=== PATIENT | female | born 1975 | race Caucasian/White ===

== ENCOUNTER 2017-09-14 07:29 | Emergency (ER) | payer OTHER ==
[~2017-09-14] VITALS: Ht 160 cm; Wt 54.4 kg
[2017-09-14] MEDS ORDERED: ZYRTEC10 M3 PO (09:21)
[2017-09-14] MEDS ORDERED: CIPRO500 MG PO (09:21)
[2017-09-14] MEDS ORDERED: MEDROLPACK PO (09:21)
[2017-09-14] MEDS ORDERED: BENADRYL25 MG PO (09:21)
== END 2017-09-14 10:25 | disposition home or self-care (01) ==
LOC: ER 07:29
DX: L27.1 Localized skin eruption due to drugs and medicaments taken internally (principal); T49.0X5A Adverse effect of local antifungal, anti-infective and anti-inflammatory drugs, initial encounter; Y92.89 Other specified places as the place of occurrence of the external cause

== ENCOUNTER → 2017-09-29 | Outpatient (CLI) | payer OTHER ==
[~2017-09-29] MED LIST: BENADRYL25 MG PO; CIPRO500 MG PO; MEDROLPACK PO; ZYRTEC10 M3 PO
== END | disposition home or self-care (01) ==
LOC: PPH VACUNA 09:58
DX: Z23 Encounter for immunization (principal)

== ENCOUNTER 2018-06-23 22:53 | Emergency (ER) | payer OTHER ==
[~2018-06-23] VITALS: Ht 203.2 cm; Wt 54.4 kg
[2018-06-24] MEDS ORDERED: MEDROL4 MG PO (02:21)
[2018-06-24] MEDS ORDERED: BENADRYL25 MG PO (02:21)
== END 2018-06-24 02:26 | disposition home or self-care (01) ==
LOC: ER 22:53
DX: L27.0 Generalized skin eruption due to drugs and medicaments taken internally (principal); T37.0X5A Adverse effect of sulfonamides, initial encounter

== ENCOUNTER 2020-07-22 14:49 | Emergency (ER) | payer OTHER ==
[~2020-07-22] VITALS: Ht 162.6 cm; Wt 54.4 kg
[~2020-07-22 14:49] MED LIST changes: +MEDROL4 MG PO
[2020-07-22] MEDS ORDERED: ZYRTEC10 M3 PO (15:51)
[2020-07-22] MEDS ORDERED: BENADRYL25 MG PO (15:51)
== END 2020-07-22 15:57 | disposition home or self-care (01) ==
LOC: ER 14:49
DX: R06.02 Shortness of breath (principal); L29.8 Other pruritus; T37.5X5A Adverse effect of antiviral drugs, initial encounter; Y92.89 Other specified places as the place of occurrence of the external cause

== ENCOUNTER 2020-11-06 15:52 | Emergency (ER) | payer OTHER ==
[~2020-11-06] VITALS: Ht 160 cm; Wt 56.7 kg
== END 2020-11-06 22:13 | disposition home or self-care (01) ==
LOC: ER 15:52
DX: N39.0 Urinary tract infection, site not specified (principal)

== ENCOUNTER 2021-09-29 09:20 | Emergency (ER) | payer OTHER ==
[~2021-09-29] VITALS: Ht 160 cm; Wt 54.4 kg
== END 2021-09-29 11:23 | disposition home or self-care (01) ==
LOC: ER 09:20
DX: S61.422A Laceration with foreign body of left hand, initial encounter (principal); W45.8XXA Other foreign body or object entering through skin, initial encounter; Y93.89 Activity, other specified; Y92.89 Other specified places as the place of occurrence of the external cause; Y99.8 Other external cause status